=== PATIENT | female | born 1995 | race Caucasian/White ===

== ENCOUNTER 2021-08-10 08:52 | Emergency (ER) | payer OTHER ==
[2021-08-10 08:58] VITALS: BP 120/74; PULSE 87; TEMP 98.3; BMI 28.2
[2021-08-10] MEDS ORDERED: DIPHTH,PERTUSS(ACELL),TET 0.5 ML DISP.SYRIN IM ONE ×2 (09:42→10:31)
[2021-08-10 10:55] LABS: BASO % 0.4 % (0-2.0); EOS % 0.8 % (0-4.5); HEMATOCRIT 41.6 % (32.4-45.2); HEMOGLOBIN 14.1 GM/dL (10.7-15.3); LYMPH % 30.8 % (8-40); MCH 29.6 pg (25.7-33.7); MCHC 33.8 g/dl (32.0-36.0); MEAN CELL VOLUME 87.5 fl (80-96); MEAN PLT VOLUME 7.9 fl (7.5-11.1); MONO % 5.1 % (3.8-10.2); NEUT % 62.9 % (42.8-82.8); PLATELET COUNT 278 10^3/uL (134-434); RBC 4.75 M/mm3 (3.60-5.2); RDW 12.3 % (11.6-15.6); WHITE BLOOD COUNT 5.5 K/mm3 (4.0-10.0)
[2021-08-10 11:08] LABS: CALCIUM 9.6 mg/dL (8.5-10.1)
[2021-08-10 11:09] LABS: ALBUMIN 4.3 g/dl (3.4-5.0); BLOOD UREA NITROGEN 12.6 mg/dL (7-18)
[2021-08-10 11:12] LABS: CREATININE 0.8 mg/dL (0.55-1.3)
[2021-08-10 11:14] LABS: BILIRUBIN,TOTAL 0.3 mg/dL (0.2-1); TOT PROT 7.9 g/dl (6.4-8.2)
[2021-08-10 12:07] LABS: HIV INTERPRETATION NEGATIVE (NEGATIVE)
== END 2021-08-10 10:48 ==
LOC: JERFT 08:52
PROC: 3E0234Z Introduction of Serum, Toxoid and Vaccine into Muscle, Percutaneous Approach (ICD-10-PCS; principal; 2021-08-10)
DX: S61.232A Puncture wound without foreign body of right middle finger without damage to nail, initial encounter (principal); W46.1XXA Contact with contaminated hypodermic needle, initial encounter
CPT/HCPCS: 36415; 80053; 85025; 86704; 86803; 87340; 87389; 87517; 90715; 99283-25

== ENCOUNTER 2022-02-03 11:05 | Emergency (ER) | payer OTHER ==
[2022-02-03 11:14] VITALS: BP 107/69; PULSE 79; TEMP 97.8; BMI 30.3
[2022-02-03 12:25] LABS: BASO % 0.6 % (0-2.0); EOS % 0.5 % (0-4.5); HEMATOCRIT 37.8 % (32.4-45.2); HEMOGLOBIN 12.8 GM/dL (10.7-15.3); LYMPH % 21.8 % (8-40); MCH 29.6 pg (25.7-33.7); MEAN CELL VOLUME 87.1 fl (80-96); MEAN PLT VOLUME 8.2 fl (7.5-11.1); MONO % 5.6 % (3.8-10.2); NEUT % 71.5 % (42.8-82.8); PLATELET COUNT 245 10^3/uL (134-434); RBC 4.34 M/mm3 (3.60-5.2); RDW 12.7 % (11.6-15.6); WHITE BLOOD COUNT 6.4 K/mm3 (4.0-10.0)
[2022-02-03 12:42] LABS: CALCIUM 9.3 mg/dL (8.5-10.1)
[2022-02-03 12:43] LABS: ALBUMIN 4.1 g/dl (3.4-5.0)
[2022-02-03 12:44] LABS: BLOOD UREA NITROGEN 13.8 mg/dL (7-18)
[2022-02-03 12:46] LABS: CREATININE 0.7 mg/dL (0.55-1.3); URIC ACID 3.4 mg/dL (2.6-7.2)
[2022-02-03 12:47] LABS: PHOSPHOROUS 3.8 mg/dL (2.5-4.9)
[2022-02-03 12:48] LABS: TOT PROT 7.4 g/dl (6.4-8.2)
[2022-02-03 12:49] LABS: BILIRUBIN,TOTAL 0.6 mg/dL (0.2-1)
[2022-02-03 13:36] LABS: HIV INTERPRETATION NEGATIVE (NEGATIVE)
== END 2022-02-03 12:27 | disposition home or self-care (01) ==
LOC: JERFT 11:05
DX: S61.432A Puncture wound without foreign body of left hand, initial encounter (principal); W46.1XXA Contact with contaminated hypodermic needle, initial encounter
CPT/HCPCS: 36415; 80053; 82465; 82977; 83615; 84100; 84478; 84550; 84702; 85025; 86704; 86803; 87340; 87389; 87517; 99283-25